=== PATIENT | female | born 1960 | race Caucasian/White ===

== ENCOUNTER 2017-12-07 12:24 | Outpatient (CLI) | payer BC | END 2017-12-07 12:25 | disposition home or self-care (01) | LOC: BICMAMMO 12:24 | PROVIDERS: ATTEND Family Medicine | DX: Z12.31 Encounter for screening mammogram for malignant neoplasm of breast (principal) | CPT/HCPCS: 77063; 77067 ==

== ENCOUNTER 2018-12-15 11:55 | Outpatient (CLI) | payer BC ==
--- NOTE | 2018-12-15 18:23 | MMO ---
Bilateral MAMMO Bilat Screen [facility]. CLINICAL HISTORY: Patient is 58 years old and is seen for screening. The patient has no family history of breast cancer. The patient has no personal history of cancer. VIEWS: The views performed were: bilateral craniocaudal with tomosynthesis and bilateral mediolateral oblique with tomosynthesis. FILMS COMPARED: The present examination has been compared to prior imaging studies performed on 04/21/2001, at [facility] on 05/29/2003, 05/29/2004, 04/28/2006, 05/30/2008, 06/05/2009, 06/06/2009, 12/03/2009, 09/10/2016 and 12/07/2017, and at [facility] on 04/20/1995. MAMMOGRAM FINDINGS: There are scattered fibroglandular densities. There are no suspicious masses, calcifications or areas of architectural distortion. IMPRESSION: THERE IS NO MAMMOGRAPHIC EVIDENCE OF MALIGNANCY. A ROUTINE FOLLOW-UP MAMMOGRAM IN 1 YEAR IS RECOMMENDED. THE RESULTS OF THIS EXAM WERE SENT TO THE PATIENT. ACR BI-RADS Category 1 - Negative MAMMOGRAPHY NOTE: 1. A negative mammogram report should not delay a biopsy if a dominant of clinically suspicious mass is present. 2. Approximately 10% to 15% of breast cancers are not detected by mammography. 3. Adenosis and dense breasts may obscure an underlying neoplasm.
== END 2018-12-15 11:56 | disposition home or self-care (01) ==
LOC: BICMAMMO 11:55
PROVIDERS: ATTEND Family Medicine
DX: Z12.31 Encounter for screening mammogram for malignant neoplasm of breast (principal)
CPT/HCPCS: 77063; 77067

== ENCOUNTER 2019-12-13 13:44 | Outpatient (CLI) | payer OTHER ==
--- NOTE | 2019-12-13 15:58 | ULT ---
TRANSABDOMINAL AND TRANSVAGINAL PELVIC ULTRASOUND: HISTORY: Left lower quadrant pain. FINDINGS: The uterus measures 8.7 x 3.3 x 4.2 cm without focal mass or endometrial fluid. The ovaries are not visualized. No adnexal mass or free fluid in the cul-de-sac is seen. The endometrium is not satisfa ctorily visualized. IMPRESSION: Limited exam as above. POS: [facility]
== END 2019-12-13 13:45 | disposition home or self-care (01) ==
LOC: BICULT 13:44
PROVIDERS: ATTEND Family Medicine
DX: R10.9 Unspecified abdominal pain (principal)
CPT/HCPCS: 76856

== ENCOUNTER 2020-01-09 09:02 | Outpatient (CLI) | payer OTHER ==
--- NOTE | 2020-01-09 10:51 | CT ---
CT ABDOMEN AND PELVIS WITH IV CONTRAST 01/09/2020 CLINICAL INFORMATION: Left lower quadrant abdominal pain since 08/23/2019. Patient states she has severe left lower quadran t abdominal pain to 3 times at age. COMPARISON: None. Technique: Multiple contiguous axial CT images are obtained through the abdomen and pelvis with IV contrast. Cor onal reformatted images are provided. FINDINGS: Lower Chest: Linear atelectasis versus scarring is present in the lingula. The lung bases are otherwi se clear. Vessels: The abdominal aorta is normal in caliber without evidence of an aortic dissection. Abdomen: Portal vein:Patent Gallbladder: Within normal limits for CT imaging. Liver: Subcentimeter too small to characterize hypodense lesion is seen in the right hepatic lobe. Spleen: within normal limits. Pancreas: within normal limits. Adrenals: within normal limits. Kidneys: within normal limits. Bowel: A few scattered colonic diverticula are seen. Loops of small bowel are normal in caliber. Appendix: The appendix is visualized and normal in caliber. Peritoneum: No ascites or free air; no fluid collection. Mesentery and Retroperitoneum: No enlarged mesenteric or retroperitoneal lymph nodes. Abdominal Wall: Tiny fat-containing umbilical hernia is present. Pelvis: Reproductive Organs: A 1.3 cm hypodense right adnexal cystic lesion is seen likely due to dominant ri ght ovarian follicle. Pelvis within normal limits. Bladder: within normal limits. Bones: Degenerative changes are seen in the spine greatest involving the lower lumbar spine. Scleroti c subcentimeter densities are seen in the proximal right humerus most compatible with small bone islands. IMPRESSION: 1. No acute findings are seen in the abdomen or pelvis. 2. Subcentimeter too small to characterize hypodense lesion right hepatic lobe.
== END 2020-01-09 09:03 | disposition home or self-care (01) ==
LOC: SCSCT 09:02
PROVIDERS: ATTEND Family Medicine
DX: R10.32 Left lower quadrant pain (principal); K76.9 Liver disease, unspecified
CPT/HCPCS: 74177; 82565

== ENCOUNTER 2020-08-15 13:27 | Outpatient (CLI) | payer BC, OTHER ==
--- NOTE | 2020-08-15 14:36 | MMO ---
Bilateral MAMMO Bilat Screen [facility]. CLINICAL HISTORY: Patient is 60 years old and is seen for screening. The patient has no family history of breast cancer. The patient has no personal history of cancer. VIEWS: The views performed were: bilateral craniocaudal with tomosynthesis and bilateral mediolateral oblique with tomosynthesis. FILMS COMPARED: The present examination has been compared to prior imaging studies performed at [facility] on 12/03/2009, 09/10/2016, 12/07/2017 and 12/15/2018. This study has been interpreted with the assistance of computer-aided detection. MAMMOGRAM FINDINGS: There are scattered fibroglandular densities. There are no suspicious masses, suspicious calcifications, or new areas of architectural distortion. IMPRESSION: THERE IS NO MAMMOGRAPHIC EVIDENCE OF MALIGNANCY. A ROUTINE FOLLOW-UP MAMMOGRAM IN 1 YEAR IS RECOMMENDED. THE RESULTS OF THIS EXAM WERE SENT TO THE PATIENT. ACR BI-RADS Category 1 - Negative MAMMOGRAPHY NOTE: 1. A negative mammogram report should not delay a biopsy if a dominant of clinically suspicious mass is present. 2. Approximately 10% to 15% of breast cancers are not detected by mammography. 3. Adenosis and dense breasts may obscure an underlying neoplasm. Reported by: POLINA SAMUEL MD Electonically Signed: [id number]
== END 2020-08-15 13:28 | disposition home or self-care (01) ==
LOC: BICMAMMO 13:27
PROVIDERS: ATTEND Family Medicine
DX: Z12.31 Encounter for screening mammogram for malignant neoplasm of breast (principal)
CPT/HCPCS: 77063; 77067